=== PATIENT | male | born 2005 | race Caucasian/White ===

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

== ENCOUNTER 2025-01-09 20:16 | Emergency (ER) | payer MEDICAID ==
[2025-01-09] MEDS: Lidocaine 1% 10 ML MDV INJECT ONE (22:04)
[2025-01-09] MEDS: Bacitracin Oint 1 GM U/D Packet TOP ONE (22:04)
== END 2025-01-09 23:27 | disposition home or self-care (01) ==
LOC: JP.ED 20:16
DX: S01.01XA Laceration without foreign body of scalp, initial encounter (principal); W22.8XXA Striking against or struck by other objects, initial encounter; Y93.89 Activity, other specified
CPT/HCPCS: 12001; 12002; 70450; 99282; 99283; J2003